=== PATIENT | female | born 1975 | race Caucasian/White ===

== ENCOUNTER 2017-11-10 01:43 | Emergency (ER) | payer MEDICAID ==
[~2017-11-10] VITALS: Ht 165.1 cm; Wt 132.7 kg
[~2017-11-10 01:43] MED LIST: ALBU18HF INH; ASCO10004 PO; BECL8.7A7 INH; CALC1CAP8 PO; CARI350T; CETI10TA18 PO; CHOL100015 PO; DICL100G19 TP; DULO60CA7 PO; FENT1PAT9; FLUT16SP NAS; LEVO50TA; LIDOCAINE PATCH TD; MANGANESE PO; MULT-257 PO; NAPROXEN PO; OMEP-110 PO; OXAP600T2; OXYC-307; PREG100C PO; PREG150C; QUET100T PO; TOPI50TA8 PO; ZOLP10TA PO
[2017-11-10] MEDS ORDERED: ONDANSETRON 2MG/ML, 2ML ONE (03:27)
[2017-11-10] MEDS ORDERED: KETOROLAC 30 MG/1 ML ONE (03:27)
[2017-11-10 03:28] LABS: BASOPHILS # (AUTO) 0.03 x10^3/uL (0-0.1); BASOPHILS % (AUTO) 1 % (0-1); EOSINOPHILS # (AUTO) 0.18 x10^3/uL (0-0.4); EOSINOPHILS % (AUTO) 3 % (1-7); LYMPHOCYTES # (AUTO) 1.38 x10^3/uL (1-3.4); LYMPHOCYTES % (AUTO) 21 % (22-44); MD NO; MEAN CORPUSCULAR HEMOGLOBIN 24.9 pg (27.0-34.8); MEAN CORPUSCULAR HGB CONC 32.9 g/dL (32.4-35.8); MEAN CORPUSCULAR VOLUME 75.4 fL (80-100); MONOCYTES # (AUTO) 0.46 x10^3/uL (0.2-0.8); MONOCYTES % (AUTO) 7 % (2-9); NEUTROPHILS # (AUTO) 4.69 x10^3/uL (1.8-6.8); NEUTROPHILS % (AUTO) 70 % (42-75); PLATELET COUNT 333 x10^3/uL (130-400); RED BLOOD COUNT 4.44 x10^6/uL (3.82-5.3); RED CELL DISTRIBUTION WIDTH 18.6 % (9.6-15.2)
[2017-11-10] MEDS ORDERED: ONDANSETRON 2MG/ML, 2ML IVPush ONE (03:30)
[2017-11-10] MEDS ORDERED: SODIUM CHLORIDE 0.9% 1,000ML IVBOLUS ONE (03:30)
[2017-11-10] MEDS ORDERED: KETOROLAC 30 MG/1 ML IVPush ONE (03:30)
[2017-11-10] MEDS ORDERED: SODIUM CHLORIDE FLUSH 10ML SYR IVF ONE (03:30)
[2017-11-10 03:39] LABS: ALANINE AMINOTRANSFERASE 30 U/L (12-78); ALBUMIN 3.2 g/dL (3.4-5.0); ANION GAP 10 mmol/L (5-15); CALCIUM 8.6 mg/dL (8.5-10.1); CHLORIDE 105 mmol/L (98-107)
[2017-11-10 03:41] LABS: ALKALINE PHOSPHATASE 95 U/L (45-117); BILIRUBIN,TOTAL 0.2 mg/dL (0.2-1.0); TOTAL PROTEIN 7.4 g/dL (6.4-8.2)
[2017-11-10 04:00] LABS: HCG UR SG 1.015 (1.003-1.030); MICROSCOPIC NOT IND
[2017-11-10 04:01] LABS: CULTURE INDICATED? NO
[2017-11-10 05:05] VITALS: BP 137/85
== END 2017-11-10 05:33 | disposition home or self-care (01) ==
LOC: ED 02:37
DX: N83.202 Unspecified ovarian cyst, left side (principal); N23 Unspecified renal colic; M54.5 Low back pain; E11.9 Type 2 diabetes mellitus without complications; E78.5 Hyperlipidemia, unspecified; J45.909 Unspecified asthma, uncomplicated; Z88.0 Allergy status to penicillin; Z88.2 Allergy status to sulfonamides; Z88.8 Allergy status to other drugs, medicaments and biological substances; Z90.49 Acquired absence of other specified parts of digestive tract
CPT/HCPCS: 36415; 76770; 80053; 81003; 81025; 83690; 85025; 96361; 96374; 96375; 99285; J1885; J2405; J7030